=== PATIENT | female | born 1945 | race Caucasian/White ===

== ENCOUNTER 2017-05-16 10:55 | Inpatient (IN) ==
[2017-05-15 13:48] LABS: Basophils # (Auto) 0 K/mcL (0.0-0.3); Basophils % (Auto) 0.4 % (0.0-2.0); Eosinophils # (Auto) 0.1 K/mcL (0.0-0.7); Eosinophils % (Auto) 1.1 % (0.0-7.0); Granulocytes % (Auto) 76.4 % (38.0-78.0); Lymphocytes # (Auto) 1.6 K/mcL (1.5-4.8); Lymphocytes % (Auto) 15.9 % (15.5-49.0); Mean Cell Volume 90.4 fL (80.0-100.0); Mean Corpuscular HGB Conc 34.2 g/dL (31.0-36.0); Mean Corpuscular Hemoglobin 30.9 pg (26.0-34.0); Monocytes # (Auto) 0.6 K/mcL (0.1-0.9); Monocytes % (Auto) 6.2 % (1.0-12.0); Platelet Count 261 K/mcL (140-440); RBC 3.55 M/mcL (4.00-5.20); Red Cell Distribution Width 12.9 % (11.5-14.5)
[2017-05-15 14:04] LABS: Blood Urea Nitrogen 20 mg/dl (8-23)
[2017-05-15 14:13] LABS: Estimated Average Glucose(eAG) 192 mg/dL; Hemoglobin A1C 8.3 % HGB (4.0-6.0)
[~2017-05-16 10:55] MED LIST: 0.9 % SODIUM CHLORIDE 250 ML IV SCH; CELECOXIB 200 MG CAPSULE PO SCH; PREGABALIN 75 MG CAPSULE PO SCH; ceFAZolin 1 GM VIAL IV SCH; oxyCODONE 10 MG TAB.ER.12H PO SCH
[2017-05-16] MEDS ORDERED: MIDAZOLAM 2 MG/2 ML VIAL IV ONE (13:45)
[2017-05-16] MEDS ORDERED: fentaNYL 250 MCG/5 ML VIAL IV ONE (13:45)
[2017-05-16] MEDS ORDERED: PROPOFOL 200 MG/20 ML VIAL IV ONE (13:45)
[2017-05-16] MEDS ORDERED: DEXAMETHASONE 10 MG/ML VIAL IV ONE (13:45)
[2017-05-16] MEDS ORDERED: SUCCINYLCHOLINE 20 MG/ML ML IV ONE (13:45)
[2017-05-16] MEDS ORDERED: ONDANSETRON 4 MG/2 ML VIAL IV ONE (13:45)
[2017-05-16] MEDS ORDERED: hydrALAZINE 20 MG/ML VIAL IV ONE (13:45)
[2017-05-16] MEDS ORDERED: LIDOCAINE HCL/PF 100 MG/5 ML SYRINGE IV ONE (13:45)
[2017-05-16] MEDS ORDERED: METOPROLOL TARTRATE 5 MG/5 ML VIAL IV PRN (14:40)
[2017-05-16] MEDS ORDERED: BENZOCAINE/MENTHOL 1 LOZENGE PO PRN ×2 (14:40→15:39)
[2017-05-16] MEDS ORDERED: fentaNYL 100 MCG/2 ML VIAL IV PRN (14:40)
[2017-05-16] MEDS ORDERED: MEPERIDINE 25 MG/ML SYRINGE IV PRN (14:40)
[2017-05-16] MEDS ORDERED: PROMETHAZINE 25 MG/ML VIAL IV PRN (14:40)
[2017-05-16] MEDS ORDERED: METHOCARBAMOL 1,000 MG/10 ML VIAL IV PRN (14:40)
[2017-05-16] MEDS ORDERED: FLUMAZENIL 0.1 MG/ML ML IV PRN (14:40)
[2017-05-16] MEDS ORDERED: diphenhydrAMINE 50 MG/ML VIAL IV PRN (14:40)
[2017-05-16] MEDS ORDERED: ePHEDrine 50 MG/ML AMPUL IV PRN (14:40)
[2017-05-16] MEDS ORDERED: ONDANSETRON 4 MG/2 ML VIAL IV PRN ×2 (14:40→15:39)
[2017-05-16] MEDS ORDERED: ATROPINE SULFATE 0.4 MG/ML VIAL IV PRN (14:40)
[2017-05-16] MEDS ORDERED: IPRATROPIUM/ALBUTEROL 3 ML AMPUL.NEB NEB PRN (14:40)
[2017-05-16] MEDS ORDERED: NALOXONE HCL 0.4 MG/ML VIAL IV PRN (14:40)
[2017-05-16] MEDS ORDERED: LACTATED RINGERS 1,000 ML IV SCH (14:45)
[2017-05-16] MEDS ORDERED: oxyCODONE/APAP 5/325MG TABLET PO PRN (15:39)
[2017-05-16] MEDS ORDERED: BISACODYL 10 MG SUPP.RECT PR PRN (15:39)
[2017-05-16] MEDS ORDERED: HYDROmorphone 2 MG/ML SYRINGE IV PRN (15:39)
[2017-05-16] MEDS ORDERED: KETOROLAC 15 MG/ML VIAL IV PRN (15:39)
[2017-05-16] MEDS ORDERED: DEXTROSE 50% 50 ML VIAL IV PRN (15:39)
[2017-05-16] MEDS ORDERED: DEXTROSE 31 GM ORAL.SUSP PO PRN (15:39)
[2017-05-16] MEDS ORDERED: POLYETHYLENE GLYCOL 3350 17 GM PACKET PO PRN (15:39)
[2017-05-16] MEDS ORDERED: MAGNESIUM HYDROXIDE 30 ML ORAL.SUSP PO PRN (15:39)
[2017-05-16] MEDS ORDERED: TRANEXAMIC ACID 1,000 MG/10 ML VIAL IV SCH (15:39)
[2017-05-16] MEDS ORDERED: FLEETS ADULT ENEMA PR PRN (15:39)
--- NOTE | 2017-05-16 15:39 | Brief Operative Note ---
Date of procedure: 05/16/17 Pre-op diagnosis: R 4 part proximal humerus fracture dislocation Post-op diagnosis: same Procedure: Right reverse total shoulder arthroplasty Grafts/Implants: Yes (Linda 11 fx stem, 36 +2 offset, +2 inferior glenosphere , 6 poly) Anesthesia: GETA Findings: severe comminution Complications: none Surgeon: Everett Graf Manager Care Management: Paul Weinstein Specimens Removed/Pathology: none sent Condition: stable Disposition: PACU
[2017-05-16] MEDS ORDERED: INSULIN LISPRO 1 UNIT/0.01 ML UNIT SQ SCH (15:45)
[2017-05-16] MEDS ORDERED: BUPIVACAINE W/EPI 0.5% 50 ML VIAL IJ ONE (16:01)
[2017-05-16] MEDS ORDERED: ACETAMINOPHEN 1,000 MG/100 ML BOTTLE IV ONE (16:07)
--- NOTE | 2017-05-16 16:36 | XRay Report ---
CLINICAL INFORMATION: Postsurgical follow-up TECHNIQUE: AP internal and external rotation views. Axillary view COMPARISON: None. FINDINGS: Status post right reverse shoulder arthroplasty. Normal anatomic alignment. There is right basilar pulmonary parenchyma infiltrate or atelectasis. There are nonacute right-sided rib fractures. IMPRESSION: Status post right reverse shoulder arthroplasty. Interpreted and Authenticated by: Go Arambula 05/16/17
--- NOTE | 2017-05-16 16:53 | Operative Note ---
DATE OF OPERATION: 05/16/2017 PREOPERATIVE DIAGNOSIS: Right shoulder 4-part proximal humerus fracture dislocation. POSTOPERATIVE DIAGNOSIS: Right shoulder 4-part proximal humerus fracture dislocation. PROCEDURE PERFORMED: 1. Right reverse total shoulder arthroplasty using Mead size 11 humeral fracture stem; a 36, +2 lateralized, +2 inferior offset glenosphere; a standard tray with a 6 mm insert. 2. Biceps transplantation with soft tissue tenodesis. SURGEON: Everett Graf MD. FACILITIES MECHANICAL DESIGN ENGINEER: Driss Weinstein PA-C. ANESTHESIA: General. DRAINS: None. SPECIMENS: None. BLOOD LOSS: 150 mL. COMPLICATIONS: None. POSTOPERATIVE CONDITION: Stable. INDICATIONS FOR SURGERY: This is a 71-year-old female who fell last week, injuring her right shoulder. She was noted to have a 4-part proximal humerus fracture dislocation. I reduced her closed. However, she ended up with a CT post-reduction which showed the humeral head completely rotated almost 180 degrees from anatomic. FINDINGS AT SURGERY: As above. Post-fixation showed stable shoulder with satisfactory range of motion. PROCEDURE IN DETAIL: The patient had been seen preoperatively, and informed consent had been obtained after discussion of risks and benefits of surgery. Risks including, but not limited to, bleeding, possibly requiring transfusion; infection, possibly requiring implant removal and prolonged IV antibiotics; injury to nerves, blood vessels, and other surrounding structures; anesthetic risks; dislocation; continued pain; weakness; stiffness; possibility of needing further revision surgery. She understood these risks and wished to proceed. Correct operative site was marked, and the patient was taken to the operating room and general anesthesia induced. She was carefully positioned in the beach chair position and pressure points carefully padded. The right shoulder and upper extremity were then carefully prepped and draped in normal sterile fashion, and a time-out was performed verifying patient name, operative site, and plan. Ioban was used to cover all skin surfaces and then a standard deltopectoral incision was made with scalpel through skin and subcutaneous tissue. Hemostasis was obtained with Bovie cautery. Careful blunt dissection was taken medial to the deltopectoral interval. The cephalic vein appeared to be more adherent to the pectoralis side so this was bluntly dissected medial. Blunt finger dissection was used to develop the subdeltoid space and then Spann deltoid retractor placed. Immediately visible was the humeral head pointing laterally in between the greater tuberosity bone fragments. We went ahead and used a Jorge and removed this. We then began debriding bone fragments, which there were many. We then placed retractors on the anterior and posterior glenoid and released our biceps tendon off of the glenoid and then did a circumferential excision of the labrum. We then used the drill guide for the guide pin with a 10 degree caudal tilt and drilled this. We then used the 36 reamer to ream, getting cancellous bone on the inferior half and just getting the subchondral bone on the superior portion. We then removed the guide pin and used our depth gauge and chose appropriate length screw that would give us bicortical fixation. We placed the screw prior to placing the baseplate and then backed this back out just so the hole was opened, and then holding firm pressure again with the glenosphere we advanced the screw until we had firm fixation. We then removed the handle for the baseplate and then tried to turn the screw to verify that indeed we were tight, which we were. We then drilled and placed four locking screws in the glenosphere. We got three good length screws. We then chose our +2 lateralized and +2 inferior offset baseplate and our glenosphere and then after irrigating with Irrisept and waiting minute, we pulse lavaged and then placed the glenosphere. We then placed traction sutures around our greater and lesser tuberosity fragments and then exposed the humeral shaft. We reamed by hand up to a size 13 reamer and then chose an 11 stem trial. We initially positioned this and it was too tight, so we kept adjusting until we could reduce the shoulder. We then took note of the osman on the stem trial. We removed the stem trial then. Definitive 11 stem was opened. Antibiotic Palacos cement was mixed. We irrigated the humeral canal with Irrisept, after a minute we pulse lavaged. Cement restrictor was placed, and then we suctioned with the tampon suction. We then packed the Palacos cement around the nonporous coated portion of the stem and advanced the stem down the canal. We did remove excess cement around the porous coating and positioned the stem approximately where we had found reduction was adequate and went just a little bit deeper. We held this at 30 degrees retroversion, absolutely still until cement had fully hardened. We then trialed with a 2 mm thicker insert because we had seated the stem a little deeper and decided to go with a 2 mm thicker than standard poly. The baseplate and poly were opened and impacted. We then irrigated the humeral stem with Irrisept. We then cleaned and dried the Perez taper and impacted the head ball. We reduced the head with significant tension, and the shoulder was taken through range of motion and was very stable. I then took a #2 FiberWire, went through the bone tendon junction of the greater tuberosity fragment, went through the anterior fin of the stem, and then around the bone tendon junction of the lesser tuberosity fragment. I took a second FiberWire and passed this through the bone tendon junction of the greater, around the medial neck of the stem, and then through the bone tendon junction of the lesser, and then through the anterior fin. We then took our two traction sutures and tied these together to bring the tuberosities together and then tied the two FiberWire sutures together. We then took one more FiberWire and did a [id number] at the rotator interval just a little proximal to the tuberosities. Of note, we did use one of the FiberWire sutures and took a free needle and passed this through the biceps in horizontal mattress stitch and tied and cut the intraarticular portion of the biceps out. Final Irrisept irrigation was done, after a minute final pulse lavage. A #1 Vicryl running stitch was used to close the deltopectoral interval. Final Irrisept irrigation was done, and after a minute final pulse lavage, then 2-0 Monocryl for subcutaneous and benjamín for skin. Local anesthetic was injected and sterile dressing was applied. Arm was placed in an abductor Donjoy immobilizer. Patient was then awakened, extubated, and transferred to recovery in stable condition. ALLAN:rosalinda Job ID: [id number] Doc ID: [id number] Everett Graf MD
[2017-05-16] MEDS: 0.9 % SODIUM CHLORIDE 1,000 ML IV SCH (17:45)
[2017-05-16] MEDS: INSULIN LISPRO 1 UNIT/0.01 ML UNIT SQ SCH ×2 (19:00→21:17)
[2017-05-16] MEDS ORDERED: TEMAZEPAM 15 MG CAPSULE PO PRN (21:00)
[2017-05-16] MEDS ORDERED: SENNOSIDES 1 TABLET PO SCH (21:00)
[2017-05-16] MEDS: ceFAZolin 1 GM VIAL IV SCH (21:10)
[2017-05-16] MEDS: 0.9 % SODIUM CHLORIDE 10 ML SYRINGE IV SCH (21:11)
[2017-05-16] MEDS: DOCUSATE SODIUM 100 MG CAPSULE PO SCH (21:13)
[2017-05-17] MEDS: INSULIN LISPRO 1 UNIT/0.01 ML UNIT SQ SCH ×4 (01:15→12:00)
[2017-05-17] MEDS: 0.9 % SODIUM CHLORIDE 1,000 ML IV SCH ×2 (03:57→15:19)
[2017-05-17] MEDS: ceFAZolin 1 GM VIAL IV SCH (06:15)
[2017-05-17] MEDS: 0.9 % SODIUM CHLORIDE 10 ML SYRINGE IV SCH (06:16)
--- NOTE | 2017-05-17 07:28 | Discharge Summary ---
Providers - Providers Patient information: Note initiated : 05/17/17 at 7:25 am Service Date, if different from initiated Date: [] Patient: Carly Rodriguez 71 y/o F admitted on 05/16/17 for Right Reverse Total Shoulder Arthroplasty. Chief Complaint: [] Discharge date: 05/17/17 Hospitalization Hospital course: Pt was admitted for a R reverse total shoulder arthroplasty for a proximal humerus fx. She spent one night one the floor prior to discharge. Discharge diagnosis: R shoulder proximal humerus fx Exam - Exam Clean and dry: Yes Weight bearing status: none Ortho Discharge - TSA - Patient Instructions Diet: Regular Diet Activity: non weight bearing Total Shoulder Protocol: Leave immobilizer in place except for bathing and ROM. Abduction pillow. Continue to wear sling until seen by physician. Codman Pendulum : These exercises use momentum produced by your body to move your shoulder joint. Bend your knees and shift your weight to your front leg, then back, allowing your arm to swing in the same directions. Using the same technique, alternately shift your weight between your right and left legs, allowing your arm to swing from side to side. These exercises are also performed in counterclockwise and clockwise circular motions. Typically these exercises are performed several times per day, for a set number repetitions or minutes, such as 20 times in a row or 5 minutes at a time. Dressing Care: May shower in 2 days - Follow Up Plan Disposition: Home, Self-Care Prognosis: Good Rehab Potential: Good Overall status at discharge: patient is progressing back to baseline - Orders For Discharge Prescriptions: Acetaminophen W/Codeine #3 [Tylenol #3] 1 - 2 tab PO Q4HP PRN #90 tab PRN Reason: Pain Pending Studies Resuscitation Status Full Code Diet Consistent Carbohydrate Diet Start MonMay 16 1542 Diagnostic Test (Pha) (Accu-Chek) 1 each FS ACHS MICHAELA Last Admin: 05/17/17 01:15 Dose: 1 each Admin: 05/16/17 21:15 Dose: 1 each Admin: 05/16/17 19:00 Dose: 1 each Docusate Sodium (Colace) 100 mg PO BID [facility] Last Admin: 05/16/17 21:13 Dose: Not Given Sodium Chloride (Sodium Chloride 0.9%) 1,000 mls @ 100 mls/hr IV .Q10H MICHAELA Last Admin: 05/17/17 03:57 Dose: 100 mls/hr Infusion: 05/17/17 03:45 Dose: 100 mls/hr Admin: 05/16/17 17:45 Dose: 100 mls/hr Insulin Human Lispro (Humalog) 0 unit SQ ACHS MICHAELA PRN Reason: Protocol Last Admin: 05/17/17 01:56 Dose: 4 unit Admin: 05/17/17 01:15 Dose: 3.9 unit Admin: 05/16/17 21:17 Dose: Admin: 05/16/17 19:00 Dose: Oxycodone/Acetaminophen (Percocet 5-325 Mg) 0 tab PO Q4HP PRN PRN Reason: PAIN LEVEL 3-6 Last Admin: 05/16/17 22:54 Dose: 1 tab Senna (Senokot) 2 tab PO HS MICHAELA Last Admin: 05/16/17 21:13 Dose: Not Given Sodium Chloride (Saline Flush) 10 ml IV Q8 MICHAELA Last Admin: 05/17/17 06:16 Dose: Not Given Admin: 05/16/17 21:11 Dose: Not Given Shift Summary 05/17/17 04:05 Shift Summary by Yan Huston up to BR voiding QS, last PVR 27mls, medicated once with percocet 1 tab and pt c /o feeling "upside down and off with some difficulty reorienting self", she would like to d/c with dilaudid 2mg PO or tylenol #3 per past experiences with these medications controlling pain well with minimal use and no side effects, MIV infusing into LFA without difficulty, dsg CDI to rt. shoulder, minimal assist into BR, AVB used t/o night along with immobilizer to RUE, will d/c home today, has insulin pump and supplies so will alert staff when she checks her b.s. and covers herself, paperwork at bedside for recording Initialized on 05/17/17 04:05 - END OF NOTE
[2017-05-17] MEDS ORDERED: ASPIRIN 81 MG TAB.CHEW PO SCH (09:00)
[2017-05-17] MEDS ORDERED: LORATADINE 10 MG TABLET PO SCH (09:00)
[2017-05-17] MEDS ORDERED: SPIRONOLACTONE 25 MG TABLET PO SCH (09:00)
[2017-05-17] MEDS ORDERED: VITAMIN D3 1,000 UNIT TABLET PO SCH (09:00)
[2017-05-17] MEDS ORDERED: ATORVASTATIN 20 MG TABLET PO SCH (09:00)
[2017-05-17] MEDS: DOCUSATE SODIUM 100 MG CAPSULE PO SCH (09:38)
[2017-05-17] MEDS ORDERED: traMADol 50 MG TABLET PO PRN (09:47)
[2017-05-17] MEDS: traMADol 50 MG TABLET PO PRN ×2 (10:06→12:28)
== END 2017-05-17 13:00 | disposition home or self-care (01) | DRG 483 ==
LOC: MEDSUR 10:55
PROVIDERS: ADMIT Orthopaedic Surgery; ATTEND Orthopaedic Surgery